=== PATIENT | female | born 1945 | race Caucasian/White ===

== ENCOUNTER 2023-03-17 09:21 | Inpatient (IN) | payer MEDICARE, BC ==
[2023-03-17] MEDS ORDERED: oxyCODONE 5 MG Tab PO PRN (13:32)
[2023-03-17] MEDS ORDERED: Simethicone 80 MG Tab.Chew PO PRN (13:35)
[2023-03-17] MEDS ORDERED: Nystatin Topical Powder 15 GM Bottle ONE (15:37)
[2023-03-17] MEDS: Nystatin Topical Powder 15 GM Bottle TOP SCH ×3 (18:03→21:48)
[2023-03-17] MEDS: hydrALAZINE 25 MG Tab PO SCH (19:25)
[2023-03-17] MEDS: Apixaban 2.5 MG Tab PO SCH (19:25)
[2023-03-17] MEDS: Amoxicillin/Clavulanate K 875-125 MG Tab PO SCH (19:25)
[2023-03-17] MEDS ORDERED: Menthol/Zinc Oxide Ointment 113 GM Tube TOP SCH (20:00)
[2023-03-17] MEDS ORDERED: HYDRALAZINE HCL 100 MG PO SCH (20:00)
[2023-03-17] MEDS: Nystatin Susp 100,000 Unit/ML 5 ML UD Cup PO SCH (21:48)
[2023-03-17] MEDS: Acetaminophen 500 MG Tab PO PRN (21:49)
[2023-03-18] MEDS ORDERED: Non-Formulary Medication 1 Each (Calcium Carbonate/Vitamin D3 [Calcium 600-Vit D3 400 Tabl PO SCH (08:00)
[2023-03-18] MEDS ORDERED: Non-Formulary Medication 1 Each (Lactobacillus Acidophilus [Acidophilus] 1 EACH Cap) PO SCH (08:00)
[2023-03-18] MEDS ORDERED: Non-Formulary Medication 1 Each (Multivitamin [Multi-Vitamin Daily] 1 EACH Tablet) PO SCH (08:00)
[2023-03-18] MEDS: Pantoprazole 40 MG Tab.CR PO SCH (08:17)
[2023-03-18] MEDS: Multivitamins with Iron/Calcium/Folic Acid/Minerals Tab PO SCH (08:17)
[2023-03-18] MEDS: hydrALAZINE 25 MG Tab PO SCH ×2 (08:20→21:25)
[2023-03-18] MEDS: Allopurinol 100 MG Tab PO SCH (08:22)
[2023-03-18] MEDS: amLODIPine 10 MG Tab PO SCH (08:22)
[2023-03-18] MEDS: Lactobacillus Acidophilus/Lactobacillus Sporogenes (Probiotic) Tab PO SCH (08:23)
[2023-03-18] MEDS: Amoxicillin/Clavulanate K 875-125 MG Tab PO SCH ×2 (08:23→21:11)
[2023-03-18] MEDS: Calcium Carbonate/Vitamin D3 600 MG-200 Units Tab PO SCH (08:23)
[2023-03-18] MEDS: Atenolol 50 MG Tab PO SCH (08:23)
[2023-03-18] MEDS: Furosemide 40 MG Tab PO SCH (08:24)
[2023-03-18] MEDS: Apixaban 2.5 MG Tab PO SCH ×2 (08:24→21:11)
[2023-03-18] MEDS: Nystatin Susp 100,000 Unit/ML 5 ML UD Cup PO SCH ×4 (08:24→21:21)
[2023-03-18] MEDS: Nystatin Topical Powder 15 GM Bottle TOP SCH ×2 (08:25→21:22)
[2023-03-18] MEDS: Acetaminophen 500 MG Tab PO PRN ×2 (11:09→21:21)
[2023-03-18] MEDS ORDERED: Nystatin Susp 100,000 Unit/ML 5 ML UD Cup PO SCH (21:14)
[2023-03-19] MEDS: Nystatin Susp 100,000 Unit/ML 5 ML UD Cup PO SCH ×4 (08:10→20:42)
[2023-03-19] MEDS: Allopurinol 100 MG Tab PO SCH (08:10)
[2023-03-19] MEDS: hydrALAZINE 25 MG Tab PO SCH ×2 (08:11→20:42)
[2023-03-19] MEDS: Amoxicillin/Clavulanate K 875-125 MG Tab PO SCH ×2 (08:13→20:41)
[2023-03-19] MEDS: Multivitamins with Iron/Calcium/Folic Acid/Minerals Tab PO SCH (08:14)
[2023-03-19] MEDS: Calcium Carbonate/Vitamin D3 600 MG-200 Units Tab PO SCH (08:14)
[2023-03-19] MEDS: Pantoprazole 40 MG Tab.CR PO SCH (08:14)
[2023-03-19] MEDS: amLODIPine 10 MG Tab PO SCH (08:14)
[2023-03-19] MEDS: Furosemide 40 MG Tab PO SCH (08:14)
[2023-03-19] MEDS: Atenolol 50 MG Tab PO SCH (08:15)
[2023-03-19] MEDS: Lactobacillus Acidophilus/Lactobacillus Sporogenes (Probiotic) Tab PO SCH (08:15)
[2023-03-19] MEDS: Nystatin Topical Powder 15 GM Bottle TOP SCH ×2 (08:15→20:43)
[2023-03-19] MEDS: Apixaban 2.5 MG Tab PO SCH ×2 (08:15→20:42)
[2023-03-19] MEDS ORDERED: Fluconazole 150 MG Tab PO ONE (16:00)
[2023-03-19] MEDS: Acetaminophen 500 MG Tab PO PRN (16:09)
[2023-03-20] MEDS: Lactobacillus Acidophilus/Lactobacillus Sporogenes (Probiotic) Tab PO SCH (07:44)
[2023-03-20] MEDS: Amoxicillin/Clavulanate K 875-125 MG Tab PO SCH ×2 (07:44→20:28)
[2023-03-20] MEDS: Nystatin Susp 100,000 Unit/ML 5 ML UD Cup PO SCH ×4 (07:45→20:32)
[2023-03-20] MEDS: Furosemide 40 MG Tab PO SCH (07:45)
[2023-03-20] MEDS: Nystatin Topical Powder 15 GM Bottle TOP SCH ×2 (07:45→20:30)
[2023-03-20] MEDS: Calcium Carbonate/Vitamin D3 600 MG-200 Units Tab PO SCH (07:45)
[2023-03-20] MEDS: Apixaban 2.5 MG Tab PO SCH ×2 (07:45→20:27)
[2023-03-20] MEDS: Allopurinol 100 MG Tab PO SCH (07:46)
[2023-03-20] MEDS: Acetaminophen 500 MG Tab PO PRN (07:46)
[2023-03-20] MEDS: Multivitamins with Iron/Calcium/Folic Acid/Minerals Tab PO SCH (07:46)
[2023-03-20] MEDS: Pantoprazole 40 MG Tab.CR PO SCH (07:47)
[2023-03-20 08:15] LABS: BASOPHILS ABSOLUTE AUTO 0.08 K/uL (0.02-0.10); BASOPHILS PERCENT AUTO 0.8 % (0.0-0.5); EOSINOPHILS ABSOLUTE AUTO 0.28 K/uL (0.04-0.40); EOSINOPHILS PERCENT AUTO 2.8 % (1.0-5.0); HEMOGLOBIN 8.3 g/dL (11.5-16.5); LYMPHOCYTES ABSOLUTE AUTO 1.18 K/uL (1.50-4.00); LYMPHOCYTES PERCENT AUTO 11.8 % (20.0-40.0); MEAN CORPUSCULAR HEMOGLOBIN 30.3 pg (27.0-32.0); MEAN CORPUSCULAR HGB CONC 30.7 g/dL (31.0-35.0); MEAN CORPUSCULAR VOLUME 99 fL (76-96); MEAN PLATELET VOLUME 10.5 fL (6.0-10.0); MONOCYTES ABSOLUTE AUTO 0.66 K/uL (0.20-0.80); MONOCYTES PERCENT AUTO 6.6 % (3.0-10.0); NEUTROPHILS ABSOLUTE AUTO 7.76 K/uL (2.00-7.50); PLATELET COUNT,PLT 285 K/uL (150-500); RED BLOOD CELL COUNT 2.74 M/uL (3.80-5.80); RED CELL DISTRIBUTION WIDTH 14.7 % (11.0-16.0)
[2023-03-20 08:30] LABS: A/G RATIO 0.5 (0.8-2.0); ANION GAP 9.9 mmol/L (5.0-15.0); BILIRUBIN TOTAL 0.1 mg/dL (0.0-1.0); BUN/CREATININE RATIO 10.4 (6-25); CALCIUM 7.9 mg/dL (8.5-10.1); CARBON DIOXIDE,CO2 32.6 mmol/L (21.0-32.0); CREATININE 2.02 mg/dL (0.55-1.02); EST CRCL DRUG DOSING (CG) 18.68 mL/min; POTASSIUM,K 4.5 mmol/L (3.5-5.1); PROTEIN TOTAL,TP 5.7 g/dL (6.4-8.2)
[2023-03-20] MEDS: hydrALAZINE 25 MG Tab PO SCH ×2 (09:49→20:27)
[2023-03-20] MEDS: Atenolol 50 MG Tab PO SCH (09:49)
[2023-03-20] MEDS: amLODIPine 10 MG Tab PO SCH (09:50)
[2023-03-20] MEDS: Calcium Carbonate 500 MG Tab.Chew PO PRN (20:27)
[2023-03-21] MEDS: Multivitamins with Iron/Calcium/Folic Acid/Minerals Tab PO SCH (08:17)
[2023-03-21] MEDS: Apixaban 2.5 MG Tab PO SCH ×2 (08:18→19:44)
[2023-03-21] MEDS: Allopurinol 100 MG Tab PO SCH (08:18)
[2023-03-21] MEDS: Amoxicillin/Clavulanate K 875-125 MG Tab PO SCH (08:18)
[2023-03-21] MEDS: Calcium Carbonate/Vitamin D3 600 MG-200 Units Tab PO SCH (08:19)
[2023-03-21] MEDS: Lactobacillus Acidophilus/Lactobacillus Sporogenes (Probiotic) Tab PO SCH (08:19)
[2023-03-21] MEDS: Furosemide 40 MG Tab PO SCH (08:19)
[2023-03-21] MEDS: hydrALAZINE 25 MG Tab PO SCH ×2 (08:21→19:53)
[2023-03-21] MEDS ORDERED: hydrALAZINE 25 MG Tab ONE (08:21)
[2023-03-21] MEDS: Atenolol 50 MG Tab PO SCH (08:22)
[2023-03-21] MEDS: amLODIPine 10 MG Tab PO SCH (08:22)
[2023-03-21] MEDS: Pantoprazole 40 MG Tab.CR PO SCH (08:23)
[2023-03-21] MEDS: Nystatin Topical Powder 15 GM Bottle TOP SCH ×2 (08:26→19:43)
[2023-03-21] MEDS: Nystatin Susp 100,000 Unit/ML 5 ML UD Cup PO SCH ×4 (08:26→19:42)
[2023-03-21] MEDS ORDERED: Nystatin Susp 100,000 Unit/ML 5 ML UD Cup ONE (18:37)
[2023-03-21] MEDS: Acetaminophen 500 MG Tab PO PRN (19:54)
[2023-03-22] MEDS: Furosemide 40 MG Tab PO SCH (08:00)
[2023-03-22] MEDS: Pantoprazole 40 MG Tab.CR PO SCH (08:30)
[2023-03-22] MEDS: Allopurinol 100 MG Tab PO SCH (08:31)
[2023-03-22] MEDS: Atenolol 50 MG Tab PO SCH (08:32)
[2023-03-22] MEDS: Apixaban 2.5 MG Tab PO SCH ×2 (08:33→20:27)
[2023-03-22] MEDS: Multivitamins with Iron/Calcium/Folic Acid/Minerals Tab PO SCH (08:34)
[2023-03-22] MEDS: Calcium Carbonate/Vitamin D3 600 MG-200 Units Tab PO SCH (08:34)
[2023-03-22] MEDS: Lactobacillus Acidophilus/Lactobacillus Sporogenes (Probiotic) Tab PO SCH (08:34)
[2023-03-22] MEDS: hydrALAZINE 25 MG Tab PO SCH ×2 (08:35→20:27)
[2023-03-22] MEDS: amLODIPine 10 MG Tab PO SCH (08:36)
[2023-03-22] MEDS: Nystatin Topical Powder 15 GM Bottle TOP SCH ×2 (08:37→20:28)
[2023-03-23] MEDS ORDERED: Calcium Carbonate/Vitamin D3 600 MG-200 Units Tab ONE (08:41)
[2023-03-23] MEDS: Allopurinol 100 MG Tab PO SCH (08:46)
[2023-03-23] MEDS: Pantoprazole 40 MG Tab.CR PO SCH (08:48)
[2023-03-23] MEDS: Calcium Carbonate/Vitamin D3 600 MG-200 Units Tab PO SCH (08:48)
[2023-03-23] MEDS: Furosemide 40 MG Tab PO SCH (08:49)
[2023-03-23] MEDS: Multivitamins with Iron/Calcium/Folic Acid/Minerals Tab PO SCH (08:49)
[2023-03-23] MEDS: Lactobacillus Acidophilus/Lactobacillus Sporogenes (Probiotic) Tab PO SCH (08:51)
[2023-03-23] MEDS: Apixaban 2.5 MG Tab PO SCH ×2 (08:51→20:33)
[2023-03-23] MEDS: hydrALAZINE 25 MG Tab PO SCH ×2 (08:56→20:29)
[2023-03-23] MEDS: amLODIPine 10 MG Tab PO SCH (08:58)
[2023-03-23] MEDS: Atenolol 50 MG Tab PO SCH (08:59)
[2023-03-23] MEDS: Nystatin Topical Powder 15 GM Bottle TOP SCH ×2 (09:01→20:33)
[2023-03-24] MEDS: hydrALAZINE 25 MG Tab PO SCH ×2 (07:00→19:50)
[2023-03-24] MEDS: amLODIPine 10 MG Tab PO SCH (07:01)
[2023-03-24] MEDS: Allopurinol 100 MG Tab PO SCH (07:01)
[2023-03-24] MEDS: Apixaban 2.5 MG Tab PO SCH ×2 (07:02→19:51)
[2023-03-24] MEDS: Furosemide 40 MG Tab PO SCH (07:02)
[2023-03-24] MEDS: Atenolol 50 MG Tab PO SCH (07:02)
[2023-03-24] MEDS: Multivitamins with Iron/Calcium/Folic Acid/Minerals Tab PO SCH (07:02)
[2023-03-24] MEDS: Pantoprazole 40 MG Tab.CR PO SCH (07:03)
[2023-03-24] MEDS: Nystatin Topical Powder 15 GM Bottle TOP SCH ×2 (07:04→19:51)
[2023-03-24] MEDS: Lactobacillus Acidophilus/Lactobacillus Sporogenes (Probiotic) Tab PO SCH (07:04)
[2023-03-24] MEDS: Calcium Carbonate/Vitamin D3 600 MG-200 Units Tab PO SCH (07:05)
[2023-03-24] MEDS: Calcium Carbonate 500 MG Tab.Chew PO PRN (22:00)
[2023-03-25] MEDS: Calcium Carbonate 500 MG Tab.Chew PO PRN (02:26)
[2023-03-25] MEDS: Allopurinol 100 MG Tab PO SCH (08:00)
[2023-03-25] MEDS: Lactobacillus Acidophilus/Lactobacillus Sporogenes (Probiotic) Tab PO SCH (08:00)
[2023-03-25] MEDS: hydrALAZINE 25 MG Tab PO SCH ×2 (08:00→20:35)
[2023-03-25] MEDS: Furosemide 40 MG Tab PO SCH (08:00)
[2023-03-25] MEDS: Apixaban 2.5 MG Tab PO SCH ×2 (08:00→20:34)
[2023-03-25] MEDS: Pantoprazole 40 MG Tab.CR PO SCH (08:00)
[2023-03-25] MEDS: Calcium Carbonate/Vitamin D3 600 MG-200 Units Tab PO SCH (08:00)
[2023-03-25] MEDS: Multivitamins with Iron/Calcium/Folic Acid/Minerals Tab PO SCH (08:00)
[2023-03-25] MEDS: Atenolol 50 MG Tab PO SCH (08:04)
[2023-03-25] MEDS: amLODIPine 10 MG Tab PO SCH (12:01)
[2023-03-25] MEDS: Nystatin Topical Powder 15 GM Bottle TOP SCH ×2 (12:07→20:34)
[2023-03-26] MEDS: amLODIPine 10 MG Tab PO SCH (08:10)
[2023-03-26] MEDS: Multivitamins with Iron/Calcium/Folic Acid/Minerals Tab PO SCH (08:11)
[2023-03-26] MEDS: Lactobacillus Acidophilus/Lactobacillus Sporogenes (Probiotic) Tab PO SCH (08:11)
[2023-03-26] MEDS: Allopurinol 100 MG Tab PO SCH (08:11)
[2023-03-26] MEDS: Apixaban 2.5 MG Tab PO SCH ×2 (08:12→20:03)
[2023-03-26] MEDS: Calcium Carbonate/Vitamin D3 600 MG-200 Units Tab PO SCH (08:12)
[2023-03-26] MEDS: Pantoprazole 40 MG Tab.CR PO SCH (08:12)
[2023-03-26] MEDS: hydrALAZINE 25 MG Tab PO SCH ×2 (08:14→20:03)
[2023-03-26] MEDS: Atenolol 50 MG Tab PO SCH (08:14)
[2023-03-26] MEDS: Nystatin Topical Powder 15 GM Bottle TOP SCH ×2 (08:15→20:04)
[2023-03-26] MEDS: Furosemide 40 MG Tab PO SCH (08:16)
[2023-03-27] MEDS: hydrALAZINE 25 MG Tab PO SCH ×2 (08:26→19:49)
[2023-03-27] MEDS: amLODIPine 10 MG Tab PO SCH (08:29)
[2023-03-27] MEDS: Atenolol 50 MG Tab PO SCH (08:30)
[2023-03-27] MEDS: Allopurinol 100 MG Tab PO SCH (08:30)
[2023-03-27] MEDS: Pantoprazole 40 MG Tab.CR PO SCH (08:30)
[2023-03-27] MEDS: Apixaban 2.5 MG Tab PO SCH ×2 (08:30→19:49)
[2023-03-27] MEDS: Lactobacillus Acidophilus/Lactobacillus Sporogenes (Probiotic) Tab PO SCH (08:31)
[2023-03-27] MEDS: Furosemide 40 MG Tab PO SCH (08:31)
[2023-03-27] MEDS: Multivitamins with Iron/Calcium/Folic Acid/Minerals Tab PO SCH (08:31)
[2023-03-27] MEDS: Nystatin Topical Powder 15 GM Bottle TOP SCH ×2 (08:32→19:49)
[2023-03-27] MEDS: Calcium Carbonate/Vitamin D3 600 MG-200 Units Tab PO SCH (08:33)
[2023-03-27] MEDS: Calcium Carbonate 500 MG Tab.Chew PO PRN (19:47)
[2023-03-28] MEDS: hydrALAZINE 25 MG Tab PO SCH ×2 (07:56→19:23)
[2023-03-28] MEDS: Calcium Carbonate/Vitamin D3 600 MG-200 Units Tab PO SCH (07:59)
[2023-03-28] MEDS: Allopurinol 100 MG Tab PO SCH (08:00)
[2023-03-28] MEDS: Furosemide 40 MG Tab PO SCH (08:01)
[2023-03-28] MEDS: Lactobacillus Acidophilus/Lactobacillus Sporogenes (Probiotic) Tab PO SCH (08:01)
[2023-03-28] MEDS: Apixaban 2.5 MG Tab PO SCH ×2 (08:01→19:23)
[2023-03-28] MEDS: Pantoprazole 40 MG Tab.CR PO SCH (08:01)
[2023-03-28] MEDS: Multivitamins with Iron/Calcium/Folic Acid/Minerals Tab PO SCH (08:01)
[2023-03-28] MEDS: amLODIPine 10 MG Tab PO SCH (08:02)
[2023-03-28] MEDS: Atenolol 50 MG Tab PO SCH (08:02)
[2023-03-28] MEDS: Nystatin Topical Powder 15 GM Bottle TOP SCH ×2 (08:04→19:26)
[2023-03-28 13:48] LABS: BASOPHILS ABSOLUTE AUTO 0.04 K/uL (0.02-0.10); BASOPHILS PERCENT AUTO 0.5 % (0.0-0.5); EOSINOPHILS PERCENT AUTO 2.3 % (1.0-5.0); HEMATOCRIT 29.9 % (37.0-47.0); HEMOGLOBIN 9.3 g/dL (11.5-16.5); LYMPHOCYTES PERCENT AUTO 12.9 % (20.0-40.0); MEAN CORPUSCULAR HEMOGLOBIN 30.4 pg (27.0-32.0); MEAN CORPUSCULAR HGB CONC 31.1 g/dL (31.0-35.0); MEAN CORPUSCULAR VOLUME 98 fL (76-96); MEAN PLATELET VOLUME 10.1 fL (6.0-10.0); MONOCYTES ABSOLUTE AUTO 0.39 K/uL (0.20-0.80); MONOCYTES PERCENT AUTO 4.6 % (3.0-10.0); NEUTROPHILS ABSOLUTE AUTO 6.83 K/uL (2.00-7.50); NEUTROPHILS PERCENT AUTO 79.7 % (45.0-70.0); PLATELET COUNT,PLT 233 K/uL (150-500); RED BLOOD CELL COUNT 3.06 M/uL (3.80-5.80); WHITE BLOOD CELL COUNT,WBC 8.6 K/uL (4.0-11.0)
[2023-03-28 14:08] LABS: A/G RATIO 0.7 (0.8-2.0); ALBUMIN 2.7 g/dL (3.4-5.0); ANION GAP 13.2 mmol/L (5.0-15.0); BILIRUBIN TOTAL 0.2 mg/dL (0.0-1.0); BUN/CREATININE RATIO 11.6 (6-25); C-REACTIVE PROTEIN 10.3 mg/L (0.0-3.0); CALCIUM 8.3 mg/dL (8.5-10.1); CARBON DIOXIDE,CO2 29.3 mmol/L (21.0-32.0); CREATININE 1.99 mg/dL (0.55-1.02); EST CRCL DRUG DOSING (CG) 18.96 mL/min; POTASSIUM,K 4.5 mmol/L (3.5-5.1); PROTEIN TOTAL,TP 6.7 g/dL (6.4-8.2)
[2023-03-29] MEDS ORDERED: Calcium Carbonate/Vitamin D3 600 MG-200 Units Tab ONE (07:16)
[2023-03-29] MEDS: Allopurinol 100 MG Tab PO SCH (07:19)
[2023-03-29] MEDS: amLODIPine 10 MG Tab PO SCH (07:19)
[2023-03-29] MEDS: Calcium Carbonate/Vitamin D3 600 MG-200 Units Tab PO SCH (07:20)
[2023-03-29] MEDS: Multivitamins with Iron/Calcium/Folic Acid/Minerals Tab PO SCH (07:20)
[2023-03-29] MEDS: Furosemide 40 MG Tab PO SCH (07:21)
[2023-03-29] MEDS: Pantoprazole 40 MG Tab.CR PO SCH (07:21)
[2023-03-29] MEDS: Apixaban 2.5 MG Tab PO SCH (07:21)
[2023-03-29] MEDS: Lactobacillus Acidophilus/Lactobacillus Sporogenes (Probiotic) Tab PO SCH (07:21)
[2023-03-29] MEDS: hydrALAZINE 25 MG Tab PO SCH (07:22)
[2023-03-29] MEDS: Atenolol 50 MG Tab PO SCH (07:22)
[2023-03-29] MEDS: Nystatin Topical Powder 15 GM Bottle TOP SCH (07:24)
== END 2023-03-29 10:03 | disposition home or self-care (01) | DRG 948 ==
LOC: LB.MS 13:24
PROVIDERS: ADMIT Surgery; ATTEND Surgery
DX: R53.81 Other malaise (principal); Z68.42 Body mass index [BMI] 45.0-49.9, adult; I50.9 Heart failure, unspecified; K59.09 Other constipation; Z96.649 Presence of unspecified artificial hip joint; E66.01 Morbid (severe) obesity due to excess calories; I11.0 Hypertensive heart disease with heart failure; I89.0 Lymphedema, not elsewhere classified; K21.9 Gastro-esophageal reflux disease without esophagitis; Z79.2 Long term (current) use of antibiotics; Z79.01 Long term (current) use of anticoagulants; Z79.899 Other long term (current) drug therapy; Z90.49 Acquired absence of other specified parts of digestive tract; Z98.890 Other specified postprocedural states; Z86.711 Personal history of pulmonary embolism
CPT/HCPCS: 36415; 74176; 80053; 83690; 85025; 85651; 86140; 97110-GO; 97161-GP; 97165-GO; 97530-GO; 97530-GP; 97535-GO; 99305; 99309; 99315; A9270-GY